=== PATIENT | female | born 1985 | race Caucasian/White ===

== ENCOUNTER 2018-05-20 21:00 | Emergency (ER) | payer SELFPAY ==
[~2018-05-20] VITALS: Ht 160 cm; Wt 59.0 kg
[2018-05-20 21:11] VITALS: Ht 160 cm; Wt 59.0 kg
[2018-05-20 23:22] VITALS: BP 106/68
== END 2018-05-20 23:22 | disposition home or self-care (01) ==
LOC: ED 21:00
DX: S20.219A Contusion of unspecified front wall of thorax, initial encounter (principal); W18.39XA Other fall on same level, initial encounter; Y93.89 Activity, other specified; Y92.89 Other specified places as the place of occurrence of the external cause; Y99.8 Other external cause status

== ENCOUNTER 2019-02-19 21:07 | Emergency (ER) | payer SELFPAY ==
[~2019-02-19] VITALS: Ht 160 cm; Wt 51.7 kg
[2019-02-19 21:16] VITALS: Ht 160 cm; Wt 51.7 kg
[2019-02-19 22:09] LABS: BASOPHIL % 0.8 % (0-2)
[2019-02-19 22:12] LABS: PLATELET COUNT 587 x10^3mcL (130-400); RED CELL DISTRIBUTION WIDTH 17.5 % (11.5-14.5)
[2019-02-19 23:17] VITALS: BP 115/90
== END 2019-02-19 23:17 | disposition home or self-care (01) ==
LOC: ED 21:07
PROVIDERS: Emergency Medicine
DX: N92.0 Excessive and frequent menstruation with regular cycle (principal); D64.9 Anemia, unspecified; F17.210 Nicotine dependence, cigarettes, uncomplicated; F15.10 Other stimulant abuse, uncomplicated; F12.10 Cannabis abuse, uncomplicated; Z98.890 Other specified postprocedural states
CPT/HCPCS: 36415; 99406

== ENCOUNTER 2019-04-08 17:03 | Emergency (ER) | payer MEDICAID ==
[~2019-04-08] VITALS: Ht 160 cm; Wt 52.2 kg
[2019-04-08 17:10] VITALS: BP 141/97; Ht 160 cm; Wt 52.2 kg
== END 2019-04-08 18:32 | disposition left against medical advice (07) ==
LOC: ED 17:03
DX: Z53.21 Procedure and treatment not carried out due to patient leaving prior to being seen by health care provider (principal)